=== PATIENT | male | born 1965 | race Caucasian/White ===

== ENCOUNTER 2020-07-30 07:03 | Emergency (ER) | payer MEDICAID ==
[2020-07-30 07:21] VITALS: BP 121/90
--- NOTE | 2020-07-30 07:21 | ED Physician Documentation ---
PD HPI HEENT - Stated complaint Stated Complaint: HEAD PX,FACE SWELLING - Chief complaint Chief Complaint: Heent - History obtained from History obtained from: Patient - History of Present Illness Timing - onset: Yesterday Timing - details: Abrupt onset, Still present Location: Tooth (left lower tooth/gum pain and swelling, with mandible swelling noted awakening today.) Worsens: No: Swalllowing, Position Associated symptoms: No: Fever, Congestion, Swollen nodes Recently seen: Not recently seen Review of Systems Constitutional: denies: Fever, Chills Cardiac: denies: Chest pain / pressure, Palpitations GI: denies: Abdominal Pain, Nausea PD PAST MEDICAL HISTORY - Past Medical History Cardiovascular: None Respiratory: None Endocrine/Autoimmune: None - Present Medications Home Medications: Ambulatory Orders Medication Instructions Recorded Confirmed Chlorhexidine Gluconate [Peridex] 15 ml MM TID #118 ml 07/30/20 cephALEXin [Keflex] 500 mg PO TID #20 cap 07/30/20 - Allergies Allergies/Adverse Reactions: Allergies Allergy/AdvReac Type Severity Reaction Status Date / Time No Known Drug Allergies Allergy Verified 07/30/20 07:21 PD ED PE NORMAL - Vitals Vital signs reviewed: Yes - General General: Alert and oriented X 3, Well developed/nourished - HEENT HEENT: Ears normal, Moist mucous membranes, Pharynx benign. No: Dentition benign (swelling mandible area and has gum swelling without fluctuance lower left. Dental decay diffusely.) - Neck Neck: Supple, no meningeal sign, No adenopathy - Cardiac Cardiac: RRR, No murmur - Respiratory Respiratory: Clear bilaterally Results - Vitals Vitals: Oxygen O2 Source Room air PD MEDICAL DECISION MAKING - ED course Complexity details: considered differential (swelling mandible area and has gum swelling without fluctuance lower left. Dental decay diffusely. ), d/w patient Departure - Departure Disposition: 01 Home, Self Care Clinical Impression: Abscess, dental Condition: Stable Record reviewed to determine appropriate education?: Yes Instructions: ED Abscess Dental Prescriptions: cephALEXin [Keflex] 500 mg PO TID #20 cap Chlorhexidine Gluconate [Peridex] 15 ml MM TID #118 ml Comments: The swelling seems to originate from an infection at the base of the tooth. We will treat this with cephalexin antibiotic as directed for a week. Also use chlorhexidine oral rinse twice daily. Anti-inflammatory such as ibuprofen 3 times a day with food. To that add Tylenol if needed for pain. This should get the infection better and decrease the swelling and pain. Subsequently you will need more definitive care of the tooth so the conditions will be improved that allowed for the infection to develop. Follow-up with a dentist ([facility] as an option). Discharge Date/Time: 07/30/20 07:41
[2020-07-30] MEDS ORDERED: cephALEXin 250 MG CAPSULE PO STA (07:29)
[2020-07-30] MEDS ORDERED: ACETAMINOPHEN 325 MG TABLET PO STA (07:29)
== END 2020-07-30 07:41 | disposition home or self-care (01) ==
LOC: ED 07:03
DX: K04.7 Periapical abscess without sinus (principal); K02.9 Dental caries, unspecified
CPT/HCPCS: 99282; 99283; A9270